=== PATIENT | male | born 1975 | race Caucasian/White ===

== ENCOUNTER 2016-05-15 12:55 | Emergency (ER) | payer OTHER, MEDICAID | END 2016-05-15 15:12 | disposition home or self-care (01) | LOC: FASTR 12:55 | DX: S43.492A Other sprain of left shoulder joint, initial encounter (principal); S53.492A Other sprain of left elbow, initial encounter; M70.22 Olecranon bursitis, left elbow; W01.0XXA Fall on same level from slipping, tripping and stumbling without subsequent striking against object, initial encounter; Y92.009 Unspecified place in unspecified non-institutional (private) residence as the place of occurrence of the external cause | CPT/HCPCS: 71020 ==